=== PATIENT | female | born 1940 | race Caucasian/White ===

== ENCOUNTER 2019-02-11 06:04 | Day surgery (SDC) | payer MEDICARE, OTHER ==
[2019-02-04 12:02] VITALS: BP 117/57
[~2019-02-11] VITALS: Ht 160 cm; Wt 71.3 kg
[~2019-02-11 06:04] MED LIST: ASPI-496 PO; CHOL100011 PO; CHOL200074 PO; FOLI-17 PO; FURO-93 PO; GABA300C10 PO; MAGN400T36 PO; METO-282 PO; METO-93 PO; METO50TA82 PO; MULT1TAB52 PO; MULT1TAB60 PO; PANT20TA3 PO; PANT40TA5 PO; SPIR25TA5 PO; THIA100T27 PO; VENL25TA PO; magnesium PO
[2019-02-11] MEDS ORDERED: BUPIVACAINE/PF-EPI 0.5% 1:200K ONE (06:37)
[2019-02-11] MEDS ORDERED: LACTATED RINGERS 1,000 ML IV SCH (06:56)
[2019-02-11] MEDS ORDERED: MIDAZOLAM 1 MG/ML, 2ML ONE (07:23)
[2019-02-11] MEDS ORDERED: FENTANYL PF 250 MCG/5ML ONE (07:24)
[2019-02-11] MEDS ORDERED: GABAPENTIN 300 MG CAPSULE PO ONE (07:30)
[2019-02-11] MEDS ORDERED: ACETAMINOPHEN 500 MG TABLET PO ONE (07:30)
[2019-02-11] MEDS ORDERED: THROMBIN 5,000 UNIT VIAL TP ONE (07:54)
[2019-02-11] MEDS ORDERED: ALBUTEROL/IPRATROPIUM 2.5MG/0.5MG, 3 ML NPPB PRN (08:00)
[2019-02-11] MEDS ORDERED: HYDROmorphone 2 MG/ML, 1ML IVPush PRN (08:00)
[2019-02-11] MEDS ORDERED: MIDAZOLAM 1 MG/ML, 2ML IV PRN (08:00)
[2019-02-11] MEDS ORDERED: OXYcodone 5 MG/5 ML ORAL.SOL UDC PO PRN (08:00)
[2019-02-11] MEDS ORDERED: hydrALAzine 20 MG/ML, 1ML IV PRN (08:00)
[2019-02-11] MEDS ORDERED: PROMETHAZINE 25 MG/ML, 1ML IV PRN (08:00)
[2019-02-11] MEDS ORDERED: MEPERIDINE/PF 25MG/0.5ML IVPush PRN (08:00)
[2019-02-11] MEDS ORDERED: GLYCOPYRROLATE 0.2MG/1ML, 5ML ONE (08:06)
[2019-02-11] MEDS ORDERED: ONDANSETRON 2MG/ML, 2ML ONE ×2 (08:06→08:46)
[2019-02-11] MEDS ORDERED: ROCURONIUM 10MG/ML,5ML ONE (08:06)
[2019-02-11] MEDS ORDERED: PROPOFOL 10 MG/ML, 20ML ONE (08:06)
[2019-02-11] MEDS ORDERED: SUCCINYLCHOLINE 20 MG/ML, 10ML ONE (08:06)
[2019-02-11] MEDS ORDERED: CEFAZOLIN 1,000 MG ONE (08:06)
[2019-02-11] MEDS ORDERED: NEOSTIGMINE 1 MG/ML, 10ML ONE (08:06)
[2019-02-11] MEDS ORDERED: KETOROLAC 30 MG/1 ML ONE (08:07)
[2019-02-11] MEDS ORDERED: FENTANYL PF 100 MCG/2ML ONE (08:28)
[2019-02-11] MEDS ORDERED: OXYcodone 5 MG/5 ML ORAL.SOL UDC ONE (08:28)
[2019-02-11] MEDS: FENTANYL PF 100 MCG/2ML IV PRN ×2 (08:30→08:35)
[2019-02-11] MEDS: ONDANSETRON 2MG/ML, 2ML IV PRN ×2 (08:49→13:42)
== END 2019-02-11 14:15 | disposition home or self-care (01) ==
LOC: OUT 06:04
PROVIDERS: ATTEND Colon & Rectal Surgery
DX: K40.90 Unilateral inguinal hernia, without obstruction or gangrene, not specified as recurrent (principal); F32.9 Major depressive disorder, single episode, unspecified; I11.0 Hypertensive heart disease with heart failure; I50.9 Heart failure, unspecified; K21.9 Gastro-esophageal reflux disease without esophagitis; G62.9 Polyneuropathy, unspecified; E11.9 Type 2 diabetes mellitus without complications; Z90.49 Acquired absence of other specified parts of digestive tract; Z90.710 Acquired absence of both cervix and uterus; Z79.82 Long term (current) use of aspirin; Z98.890 Other specified postprocedural states; Z87.891 Personal history of nicotine dependence; Z86.14 Personal history of Methicillin resistant Staphylococcus aureus infection; Z86.718 Personal history of other venous thrombosis and embolism; Z79.84 Long term (current) use of oral hypoglycemic drugs
CPT/HCPCS: 49650; C1727; C1781; J0330; J0690; J1885; J2250; J2405; J2704; J2710; J3010; J3490; J7120